=== PATIENT | male | born 1960 ===

== ENCOUNTER 2017-03-02 16:00 | Outpatient (RCR) | payer MEDICARE, MEDICAID | END 2017-03-18 | disposition home or self-care (01) | LOC: PTY 16:00 | DX: S93.401A Sprain of unspecified ligament of right ankle, initial encounter (principal); M76.61 Achilles tendinitis, right leg; M76.70 Peroneal tendinitis, unspecified leg; X58.XXXA Exposure to other specified factors, initial encounter; Y92.9 Unspecified place or not applicable | CPT/HCPCS: 97110; 97162; G8978; G8979 ==